=== PATIENT | male | born 1980 | race Caucasian/White ===

== ENCOUNTER 2017-01-17 22:15 | Emergency (ER) | payer MEDICAID, OTHER ==
[~2017-01-17] VITALS: Ht 180.3 cm; Wt 80.0 kg
[~2017-01-17 22:15] MED LIST: HYDR-3533 PO; NAPR-571 PO
[2017-01-17 22:16] VITALS: BP 140/91; PULSE 88; RESP 16; TEMP 98.1; O2SAT 97
--- NOTE | 2017-01-18 00:01 | PD ---
HPI Chief Complaint: Injury Time Seen by Provider: 23:20 Travel History International Travel<30 days: No Contact w/Intl Traveler<30days: No Traveled to known affect area: No History of Present Illness HPI Patient comes in for evaluation of left wrist pain that began around 11:00 this morning. Patient states that he was trying to take the tire of his truck and it was stuck so he tried to hit with the palm of his left hand causing pain. Patient is been taking ibuprofen for the pain with minimal relief. Patient's parents the pain as achy/throbbing like in nature and radial aspect of his right wrist without radiation. He states took him a while to find someone to watch his kids before he was able to come to the emergency department. Denies any numbness or tingling. Pain is worse with certain movement and palpation. PFSH Past Medical History Medical History: Denies Significant Hx Hx Anticoagulant Therapy: No Cardiovascular Problems: No Chemotherapy: No Cerebrovascular Accident: No Diabetes: No Diminished Hearing: No Respiratory: No Immunizations Current: Yes ?: Not Past Surgical History Hysterectomy: No Social History Alcohol Use: Yes (OCC) Tobacco Use: Yes (1 PPD) Substance Use: Yes (" I smoke Pot.") Allergies-Medications (Allergen,Severity, Reaction): Coded Allergies: No Known Allergies (Verified , 07/29/15) Reported Meds & Prescriptions Reported Meds & Active Scripts Active Ibuprofen 800 Mg Tab 800 Mg PO Q8H PRN Lortab 5 mg/325 mg (Hydrocodone/Acetaminophen 5 mg/325 mg) 1 Tab 1 Tab PO Q6H PRN Naproxen 250 Mg Tab 250 Mg PO Q8H PRN Review of Systems Except as stated in HPI: all other systems reviewed are Neg Physical Exam Narrative GENERAL: Well-developed, well nourished, in no acute distress, and non-ill appearing. SKIN: Warm and dry. HEAD: Atraumatic. Normocephalic. EYES: Pupils equal and round. EOMI. No scleral icterus. No injection or drainage. ENT: No nasal bleeding or discharge. Mucous membranes pink and moist. NECK: Trachea midline. Supple. No nuclear rigidity. CARDIOVASCULAR: Radial pulses 2+, intact, and equal bilaterally. Capillary refill less than 2 seconds. RESPIRATORY: No accessory muscle use. No respiratory distress. MUSCULOSKELETAL: No obvious deformities. No clubbing. No cyanosis. No edema. Decreased range of motion left wrist secondary to pain. Wrist: FROM and equal BL with passive flexion, extension, and pronation/supination. Capillary refill less than 2 seconds distal to injury and equal BL. FROM distal to injury and equal BL. Strength distal to injury equal BL. NV intact distal to injury. Flexion and extension of thumb equal BL. Equal strength and movement with abduction/adductions of BL fingers. 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 No tenderness to the anatomical snuffbox. Soft tissue swelling noted wash her face left wrist. Patient reports tenderness over left wrist radial aspect. NEUROLOGICAL: Awake and alert. No obvious cranial nerve deficits. Motor grossly within normal limits. Normal speech. PSYCHIATRIC: Appropriate mood and affect; insight and judgment normal. Data Data Last Documented VS Vital Signs Date Time Temp Pulse Resp B/P Pulse Ox O2 Delivery O2 Flow Rate FiO2 01/17/17 22:16 98.1 88 16 140/91 97 Room Air Orders Wrist, Complete ([id number]) (01/17/17 ) Ice/Cold Pack (01/17/17 22:57) Tramadol (Ultram) (01/18/17 00:30) Splint Or Brace Apply/Monitor (01/18/17 00:28) MDM Medical Decision Making Medical Screen Exam Complete: Yes Emergency Medical Condition: Yes Interpretation(s) X-ray of the left wrist was reviewed shows no acute bony abnormalities. Radiologist to over read. Differential Diagnosis Fracture, sprain, contusion, other Narrative Course There is no clinical evidence for fracture. There is no clinical evidence to suspect bony injury by exam. Radiographic examination revealed no fracture seen at this time. No obvious ligamental injury or internal derangement is noted at this time. The distal extremity appears neurovascularly intact, without evidence of neurovascular injury nor compartment syndrome. Tendon exam also was intact. The effected limb was splinted. The patient was discharged on pain medication along with sprain and splint care instructions and given warnings for vascular compromise. The patient is to follow up with Orthopedics. The patient agrees with plan. Patient in no obvious distress upon re-evaluation. All pertinent Radiology result(s) discussed with patient. Patient was asked if they wanted to speak to my attending, which the patient did not wish to do at this time. Any questions/ concerns in reference to patient diagnosis/condition discussed and clarified prior to patient's discharge. Reinforced sheer importance of close follow up with patient's primary physician or primary care clinic and/or orthopedics. Instructed patient to return to ED immediately, if symptoms return/worsen. Pt showed understanding of above instructions. Further instructions and recommendations were detailed in discharge paperwork. Pt ambulated without difficulty out of ED at discharge. Diagnosis Primary Impression: Left wrist sprain Qualified Code: S63.502A - Left wrist sprain, initial encounter Referrals: Anjum Arzate MD Patient Instructions: General Instructions, Splint Care (ED), Wrist Sprain (ED) Additional Instructions: Follow-up with your primary care physician and/or orthopedics this week for evaluation. Take all medication as prescribed. Apply ice affected area 20 minutes per hour as needed for pain. Return to the emergency department if symptoms get worse. Med/Other Pt SpecificInfo: Prescription(s) given Scripts Ibuprofen 800 Mg Mus665 Mg PO Q8H PRN (Pain/Inflammation) #21 TAB Ref 0 Prov:Trinity York MD 01/18/17 Disposition: 01 DISCHARGE HOME Condition: Stable Toy Sanchez Jan 18, 2017 00:01
[2017-01-18] MEDS ORDERED: traMADol HCL 50 MG TAB PO ONE (00:30)
[2017-01-18] MEDS ORDERED: IBUP800T23 PO (00:33)
--- NOTE | 2017-01-18 00:53 | RADRPT ---
EXAM DATE/TIME: 01/17/2017 23:27 [facility] COMPARISON: No previous studies available for comparison. INDICATIONS : Left wrist pain after working on a tire. MEDICAL HISTORY : Smoker. SURGICAL HISTORY : None. ENCOUNTER: Initial ACUITY: 1 day PAIN SCORE: 8/10 LOCATION: Left lateral wrist. FINDINGS: 3 views left wrist. Bone alignment within normal limits. No evidence of fracture. No evidence of jose nt narrowing or focal bone erosion. CONCLUSION: Left wrist series within normal limits. Catrachito Lujan MD on January 18, 2017 at 0:51 Board Certified Radiologist. This report was verified electronically.
== END 2017-01-18 00:51 | disposition home or self-care (01) ==
LOC: NEPB 22:15
DX: S63.502A Unspecified sprain of left wrist, initial encounter (principal); W22.09XA Striking against other stationary object, initial encounter; Y93.89 Activity, other specified; Y92.008 Other place in unspecified non-institutional (private) residence as the place of occurrence of the external cause; F17.210 Nicotine dependence, cigarettes, uncomplicated; F12.90 Cannabis use, unspecified, uncomplicated
CPT/HCPCS: 73110; 99283; L3908